=== PATIENT | female | born 1985 | race Caucasian/White ===

== ENCOUNTER 2017-07-19 12:35 | Emergency (ER) | payer OTHER, MEDICAID ==
[2017-07-19 13:28] LABS: URINE HCG POC HCG NEGATIVE (Negative)
[2017-07-19] MEDS: IV NORMAL SALINE 1000ML BAG 1,000 ML IV (13:30)
[2017-07-19 13:33] LABS: BILIRUBIN,URINE NEGATIVE (NEG); COLOR,URINE YELLOW; GLUCOSE,URINE NEGATIVE (NEG); NITRITE,URINE POSITIVE (NEG); PH,URINE 6.5; PROTEIN,URINE NEGATIVE (NEG-TRACE); UROBILINOGEN,URINE 0.2 mg/dL (0.2 mg/dL)
[2017-07-19 13:51] LABS: CLARITY,URINE HAZY
[2017-07-19 13:53] LABS: BACTERIA,URINE MANY /HPF (0-FEW); RBC,URINE 0 /HPF (0-2); SQUAMOUS EPITHELIAL CELL,UR MANY /LPF
[2017-07-19 14:04] LABS: ADD MAN DIFF? NO
[2017-07-19 14:07] LABS: BASO % 1 % (0-3); EOS # 0.1 x10^3/uL (0.0-0.7); EOS % 1 % (0-3); HEMATOCRIT 43.5 % (36.0-47.0); HEMOGLOBIN 14.5 g/dL (12.0-15.5); LYMPH # 1.2 x10^3/uL (1.0-4.8); LYMPH % 20 % (24-48); MEAN CORPUSCULAR HEMOGLOBIN 30 pg (25-35); MEAN CORPUSCULAR HGB CONC 33 g/dL (31-37); MEAN CORPUSCULAR VOLUME 91 fL (79-100); MONO # 0.4 x10^3/uL (0.0-1.1); MONO % 6 % (0-9); NEUT # 4.6 x10^3uL (1.8-7.7); NEUT % 73 % (31-73); PLATELET COUNT 242 x10^3/uL (140-400); RED BLOOD COUNT 4.79 x10^6/uL (3.50-5.40); RED CELL DISTRIBUTION WIDTH 13.5 % (11.5-14.5); WHITE BLOOD COUNT 6.3 x10^3/uL (4.0-11.0)
[2017-07-19 14:15] LABS: ANION GAP 8 (6-14); BLOOD UREA NITROGEN 11 mg/dL (7-20); BUN/CREATININE RATIO 14 (6-20); CARBON DIOXIDE 31 mmol/L (21-32); CHLORIDE 104 mmol/L (98-107); CREATININE 0.8 mg/dL (0.6-1.0); GFR 84.2; GLUCOSE 90 mg/dL (70-99); POTASSIUM 3.7 mmol/L (3.5-5.1); SODIUM 143 mmol/L (136-145)
[2017-07-19 14:19] LABS: BARBITURATES NEG (NEG); BENZODIAZEPINES NEG (NEG); CANNABINOIDS NEG (NEG); COCAINE NEG (NEG); METHADONE NEG (NEG); OPIATES NEG (NEG); PHENCYCLIDINE NEG (NEG)
[2017-07-19 14:20] LABS: AMPHETAMINE/METHAMPHETAMINE NEG (NEG); ETHANOL, URINE NEG (NEG)
[2017-07-19 14:26] LABS: NT-PRO BNP 21 pg/mL (0-124); TROPONINI < 0.017 ng/mL (0.000-0.055)
[2017-07-19 14:28] LABS: ALBUMIN 3.9 g/dL (3.4-5.0); ALBUMIN/GLOBULIN RATIO 1.2 (1.0-1.7); ALK PHOS 66 U/L (46-116); ALT (SGPT) 21 U/L (14-59); AST (SGOT) 14 U/L (15-37); MAGNESIUM 1.9 mg/dL (1.8-2.4); MYOGLOBIN 31 ng/mL (9-82); TOTAL BILIRUBIN 0.5 mg/dL (0.2-1.0); TOTAL PROTEIN 7.2 g/dL (6.4-8.2)
[2017-07-19] MEDS: CEPHALEXIN 250 MG CAPSULE. PO (15:48)
[2017-07-19] MEDS: TAMSULOSIN 0.4 MG CAP.ER.24H. PO (15:48)
[2017-07-20] MEDS ORDERED: cefTRIAXone IV Push 1 GM VIAL. IVP (16:00)
== END 2017-07-19 16:37 | disposition home or self-care (01) ==
LOC: ER 12:35
DX: N39.0 Urinary tract infection, site not specified (principal); M79.604 Pain in right leg; M79.605 Pain in left leg; R51 Headache; R07.9 Chest pain, unspecified; M79.1 Myalgia; R53.81 Other malaise; R20.2 Paresthesia of skin; K21.9 Gastro-esophageal reflux disease without esophagitis; Z98.51 Tubal ligation status; Z88.1 Allergy status to other antibiotic agents; Z88.8 Allergy status to other drugs, medicaments and biological substances; Z91.041 Radiographic dye allergy status
CPT/HCPCS: 36415; 71046; 80053; 80307; 81001; 81025; 83735; 83874; 83880; 84484; 85025; 93005; 96361; 96365; 99285-25; J0690; J7030

== ENCOUNTER 2017-12-03 19:15 | Emergency (ER) | payer SELFPAY ==
[~2017-12-03] VITALS: Ht 165.1 cm; Wt 49.9 kg
[~2017-12-03 19:15] MED LIST: ACET-704 PO; AMOX1TAB58 PO; CEPH-264 PO; METR500T PO; OMEP40CA2 PO; ONDA4TAB10 SL; OXYC-323 PO; PHEN100T82 PO; RANI150T21 PO
--- NOTE | 2017-12-03 19:38 | PHYS DOC ---
Past Medical History Past Medical History: GERD, P.U.D. Additional Past Medical Histor: Acid Reflux, Ulcers Past Surgical History: Tubal ligation, Other Additional Past Surgical Histo: ulcers Alcohol Use: None Drug Use: None Adult General Chief Complaint Chief Complaint: CHEST PAIN-CARDIAC NATURE HPI HPI Patient is a 31 year old female who presents with chief complaint of chest pain. Apparently she came home from work at 5:40 PM she had a Yon sandwich that was made yesterday by her boyfriend. She then had a 1 large nonbloody episode of diarrhea she says that this has been a common problem for her the last month where after eating she immediately has to go to have a bowel movement within a few minutes. She also at that time developed left-sided abdominal pain as well as central and left-sided pleuritic chest pain. She said that the chest pain radiated to her left chest and down towards her left abdominal area. She did have one episode of emesis as well. Currently she is having both sharp chest pain and abdominal pain and describing some numbness in her left upper leg as well. Addition she is also developing a headache as well. Review of Systems Review of Systems Constitutional: Denies fever or chills [] Eyes: Denies change in visual acuity, redness, or eye pain [] HENT: Denies nasal congestion or sore throat [] Respiratory: Denies cough or shortness of breath [] Cardiovascular: No additional information not addressed in HPI [] : Denies dysuria or hematuria [] All other systems were reviewed and found to be within normal limits, except as documented in this note. Current Medications Current Medications Current Medications Medications (Trade) Dose Ordered Sig/Cedric Start Time Stop Time Status Last Admin Dose Admin Fentanyl Citrate (Fentanyl 2ml Vial) 25 mcg 1X ONCE 12/03/17 20:00 12/03/17 20:01 DC 12/03/17 19:53 25 MCG Ketorolac Tromethamine (Toradol 15mg Vial) 15 mg 1X ONCE 12/03/17 22:30 12/03/17 22:31 DC 12/03/17 23:12 15 MG Multi-Ingredient Mouthwash/Gargle (Gi Cocktail) 20 ml 1X ONCE 12/03/17 22:30 12/03/17 22:31 DC 12/03/17 23:13 20 ML Ondansetron HCl (Zofran) 4 mg 1X ONCE 12/03/17 22:30 12/03/17 22:31 DC 12/03/17 23:10 4 MG Sodium Chloride 1,000 ml @ 1,000 mls/hr 1X ONCE 12/03/17 20:00 12/03/17 20:59 DC 12/03/17 19:54 1,000 MLS/HR Allergies Allergies Allergies Coded Allergies Type Severity Reaction Last Updated Verified Iodinated Contrast- Oral and IV Dye Allergy Severe 12/03/17 Yes levofloxacin Allergy Severe Seizure 08/19/13 Yes promethazine HCl Allergy Severe Seizure 08/19/13 Yes calcium carbonate Allergy Intermediate 12/03/17 Yes Physical Exam Physical Exam Constitutional: Well developed, well nourished, mild distress, non-toxic appearance. [] HENT: Normocephalic, atraumatic, bilateral external ears normal, oropharynx moist, no oral exudates, nose normal. [] Eyes: PERRLA, EOMI, conjunctiva normal, no discharge. [] Neck: Normal range of motion, no tenderness, supple, no stridor. [] Cardiovascular:Heart rate regular rhythm, no murmur [] Lungs & Thorax: Bilateral breath sounds clear to auscultation [] Abdomen: Bowel sounds normal, soft, mild left upper quadrant and left lower quadrant tenderness, no masses, no pulsatile masses. [] Skin: Warm, dry, no erythema, no rash. [] Extremities: No tenderness, no cyanosis, no clubbing, ROM intact, no edema. [] Neurologic: Alert and oriented X 3, normal motor function, normal sensory function, no focal deficits noted. [] Psychologic: Affect normal, judgement normal, mood normal. [] Current Patient Data Vital Signs Vital Signs Date Time Temp Pulse Resp B/P (MAP) Pulse Ox O2 Delivery O2 Flow Rate FiO2 12/03/17 19:53 20 Room Air 12/03/17 19:20 97.8 57 108/65 (79) 100 97.8 Lab Values Laboratory Tests Test 12/03/17 19:33 12/03/17 19:40 12/03/17 22:23 White Blood Count 6.7 x10^3/uL (4.0-11.0) Red Blood Count 4.34 x10^6/uL (3.50-5.40) Hemoglobin 13.4 g/dL (12.0-15.5) Hematocrit 39.2 % (36.0-47.0) Mean Corpuscular Volume 90 fL (79-100) Mean Corpuscular Hemoglobin 31 pg (25-35) Mean Corpuscular Hemoglobin Concent 34 g/dL (31-37) Red Cell Distribution Width 13.2 % (11.5-14.5) Platelet Count 253 x10^3/uL (140-400) Neutrophils (%) (Auto) 66 % (31-73) Lymphocytes (%) (Auto) 26 % (24-48) Monocytes (%) (Auto) 7 % (0-9) Eosinophils (%) (Auto) 1 % (0-3) Basophils (%) (Auto) 1 % (0-3) Neutrophils # (Auto) 4.4 x10^3uL (1.8-7.7) Lymphocytes # (Auto) 1.7 x10^3/uL (1.0-4.8) Monocytes # (Auto) 0.4 x10^3/uL (0.0-1.1) Eosinophils # (Auto) 0.1 x10^3/uL (0.0-0.7) Basophils # (Auto) 0.1 x10^3/uL (0.0-0.2) D-Dimer (Kayla) < 0.27 ug/mlFEU Sodium Level 142 mmol/L (136-145) Potassium Level 3.1 mmol/L (3.5-5.1) L Chloride Level 102 mmol/L (98-107) Carbon Dioxide Level 30 mmol/L (21-32) Anion Gap 10 (6-14) Blood Urea Nitrogen 14 mg/dL (7-20) Creatinine 0.8 mg/dL (0.6-1.0) Estimated GFR (Cockcroft-Gault) 84.2 BUN/Creatinine Ratio 18 (6-20) Glucose Level 73 mg/dL (70-99) Calcium Level 9.0 mg/dL (8.5-10.1) Total Bilirubin 0.3 mg/dL (0.2-1.0) Aspartate Amino Transferase (AST) 17 U/L (15-37) Alanine Aminotransferase (ALT) 28 U/L (14-59) Alkaline Phosphatase 77 U/L (46-116) Troponin I Quantitative < 0.017 ng/mL (0.000-0.055) Total Protein 7.0 g/dL (6.4-8.2) Albumin 3.9 g/dL (3.4-5.0) Albumin/Globulin Ratio 1.3 (1.0-1.7) Lipase 215 U/L (73-393) Urine Collection Type Void Urine Color Yellow Urine Clarity Clear Urine pH 6.5 Urine Specific [place] 1.015 Urine Protein Negative mg/dL (NEG-TRACE) Urine Glucose (UA) Negative mg/dL (NEG) Urine Ketones (Stick) Negative mg/dL (NEG) Urine Blood Negative (NEG) Urine Nitrite Positive (NEG) Urine Bilirubin Negative (NEG) Urine Urobilinogen Dipstick 0.2 mg/dL (0.2 mg/dL) Urine Leukocyte Esterase Moderate (NEG) Urine RBC Rare /HPF (0-2) Urine WBC 5-10 /HPF (0-4) Urine Squamous Epithelial Cells Many /LPF Urine Bacteria Moderate /HPF (0-FEW) Urine Test Negative (NEG) Urine Opiates Screen Neg (NEG) Urine Methadone Screen Neg (NEG) Urine Barbiturates Neg (NEG) Urine Phencyclidine Screen Neg (NEG) Urine Amphetamine/Methamphetamine Neg (NEG) Urine Benzodiazepines Screen Neg (NEG) Urine Cocaine Screen Neg (NEG) Urine Cannabinoids Screen Neg (NEG) Urine Ethyl Alcohol Neg (NEG) POC Troponin I 0.00 ng/ml (<0.08) Laboratory Tests 12/03/17 19:33 Laboratory Tests 12/03/17 19:33 EKG EKG [] Interpretation Time: EKG shows a normal sinus rhythm with a rate of 58 no ischemic changes noted interpreted by me the timing encounter. Radiology/Procedures Radiology/Procedures [] Impressions: cx5r neg Course & Med Decision Making Course & Med Decision Making Pertinent Labs and Imaging studies reviewed. (See chart for details) 31-year-old female Presenting with a constellation of symptoms that include chest pain sharp pleuritic radiating to the left chest left upper abdomen in the setting of diarrhea that happened after she ate a Yon sandwich. She has significant reproducibility on examination both chest and abdomen. Differential included a pulmonary embolism d-dimer was negative I really think dissection is extremely unlikely as well d-dimer is negative chest x-ray was negative patient is not hypertensive she is well-appearing overall. On reevaluation she said that the abdominal pain is getting better she does have some mild intermittent cramping but the main complaint now is the pleuritic central chest pain. She also was having a headache. Lab work was essentially unremarkable except for hypokalemia advised her take oral dietary potassium supplementation at home. Patient was given treatment in the emergency room to include fentanyl Toradol Zofran she did not like a GI cocktail but otherwise was feeling somewhat better at the time of discharge. Return precautions were advised and she voiced understanding of instructions. At this point time and do not think that CT imaging is warranted I did talk with her about the risks and benefits of this and I did advise her to come back to the emergency room should her symptoms not improve appropriately mixed 0.4- 48 hours. Dragon Disclaimer Dragon Disclaimer This electronic medical record was generated, in whole or in part, using a voice recognition dictation system. Departure Departure Impression: Primary Impression: Abdominal pain Additional Impression: Chest pain Disposition: HOME, SELF-CARE Condition: STABLE Referrals: UNKNOWN PCP NAME (PCP) Scripts Ondansetron Hcl (ZOFRAN) 4 Mg Tablet 4 MG PO PRN TID PRN for NAUSEA/VOMITING, #15 nausea/vomiting Prov: TOLU VALDEZ MD 12/03/17 Problem Qualifiers TOLU VALDEZ MD Dec 03, 2017 19:38
[2017-12-03 19:49] LABS: BASO # 0.1 x10^3/uL (0.0-0.2); BASO % 1 % (0-3); EOS # 0.1 x10^3/uL (0.0-0.7); EOS % 1 % (0-3); HEMATOCRIT 39.2 % (36.0-47.0); HEMOGLOBIN 13.4 g/dL (12.0-15.5); LYMPH # 1.7 x10^3/uL (1.0-4.8); LYMPH % 26 % (24-48); MEAN CORPUSCULAR HEMOGLOBIN 31 pg (25-35); MEAN CORPUSCULAR HGB CONC 34 g/dL (31-37); MEAN CORPUSCULAR VOLUME 90 fL (79-100); MONO # 0.4 x10^3/uL (0.0-1.1); MONO % 7 % (0-9); NEUT # 4.4 x10^3uL (1.8-7.7); NEUT % 66 % (31-73); PLATELET COUNT 253 x10^3/uL (140-400); RED BLOOD COUNT 4.34 x10^6/uL (3.50-5.40); RED CELL DISTRIBUTION WIDTH 13.2 % (11.5-14.5); WHITE BLOOD COUNT 6.7 x10^3/uL (4.0-11.0)
[2017-12-03 19:51] LABS: BILIRUBIN,URINE NEGATIVE (NEG); CLARITY,URINE CLEAR; COLOR,URINE YELLOW; NITRITE,URINE POSITIVE (NEG); PH,URINE 6.5; PROTEIN,URINE NEGATIVE (NEG-TRACE); UROBILINOGEN,URINE 0.2 mg/dL (0.2 mg/dL)
[2017-12-03 19:57] LABS: AMPHETAMINE/METHAMPHETAMINE NEG (NEG); BARBITURATES NEG (NEG); BENZODIAZEPINES NEG (NEG); CANNABINOIDS NEG (NEG); COCAINE NEG (NEG); METHADONE NEG (NEG); OPIATES NEG (NEG); PHENCYCLIDINE NEG (NEG)
[2017-12-03 19:58] LABS: BACTERIA,URINE MODERATE /HPF (0-FEW); RBC,URINE RARE /HPF (0-2); SQUAMOUS EPITHELIAL CELL,UR MANY /LPF
[2017-12-03 19:59] LABS: CREATININE 0.8 mg/dL (0.6-1.0); GFR 84.2; POTASSIUM 3.1 mmol/L (3.5-5.1)
[2017-12-03] MEDS ORDERED: fentaNYL PF VIAL 100 MCG/2 ML VIAL IV ONE (20:00)
[2017-12-03] MEDS ORDERED: ONDANSETRON PF 4 MG/2 ML VIAL. IV ONE ×2 (20:00→22:30)
[2017-12-03] MEDS ORDERED: IV NORMAL SALINE 1000ML BAG 1,000 ML IV ONE (20:00)
[2017-12-03 20:05] LABS: ALBUMIN 3.9 g/dL (3.4-5.0); ALBUMIN/GLOBULIN RATIO 1.3 (1.0-1.7); TOTAL BILIRUBIN 0.3 mg/dL (0.2-1.0)
--- NOTE | 2017-12-03 20:39 | EKG ---
[facility] [address] [place] [address] Test Date: 2017-12-03 Test Time: 19:24:31 Pat Name: JOSEPH JAMIL Department: Room: Gender: Female Medicine Assistant: : 1985 Requested By: TOLU VALDEZ Order Number: [id number] Reading MD: Jose Etienne MD Measurements Intervals [place] Rate: 58 P: 39 CA: 132 QRS: 79 QRSD: 72 T: 49 QT: 420 QTc: 416 Interpretive Statements SINUS RHYTHM Electronically Signed On 12-04-2017 8:19:12 CDT by Jose Etienne MD
[2017-12-03 20:42] LABS: U PREG PATIENT NEGATIVE (NEG)
--- NOTE | 2017-12-03 21:33 | RAD ---
PROCEDURE: PORTABLE CHEST 1V CLINICAL INDICATION: LEFT SIDED CHEST PAIN X1 DAY, SOA COMPARISON: 07/19/2017 FINDINGS: No pneumothorax identified. Cardiac and mediastinal contours unremarkable. No pulmonary consolidation or acute airspace disease. No acute osseous abnormalities identified. IMPRESSION: No pulmonary consolidation or acute airspace disease. Electronically signed by: Emre Wiggins DO (12/03/2017 9:31 PM) [facility]
[2017-12-03] MEDS ORDERED: LIDO:MAALOX 1:1 20 ML SINGLE DOSE. SWSW ONE (22:30)
[2017-12-03] MEDS ORDERED: KETOROLAC 15 MG/ML VIAL. IV ONE (22:30)
[2017-12-03] MEDS ORDERED: ONDA4TAB7 PO (23:28)
[2017-12-04] VITALS: BP 95/57
== END 2017-12-04 00:20 | disposition home or self-care (01) ==
LOC: ER 19:15
DX: R07.89 Other chest pain (principal); R10.32 Left lower quadrant pain; R10.12 Left upper quadrant pain; K21.9 Gastro-esophageal reflux disease without esophagitis; R10.9 Unspecified abdominal pain; R20.0 Anesthesia of skin; Z98.51 Tubal ligation status; Z88.8 Allergy status to other drugs, medicaments and biological substances; Z91.041 Radiographic dye allergy status; Z88.1 Allergy status to other antibiotic agents
CPT/HCPCS: 36415; 71045; 80053; 80307; 81001; 81025; 83690; 84484; 85025; 85379; 87086; 93005; 96374; 96375; 96376; 99285; J1885; J2405; J3010; J7030; 87186; G0479

== ENCOUNTER 2018-02-14 21:42 | Emergency (ER) | payer SELFPAY ==
[~2018-02-14] VITALS: Ht 165.1 cm; Wt 49.9 kg
[~2018-02-14 21:42] MED LIST changes: +ONDA4TAB7 PO
[2018-02-14 22:27] LABS: BASO % 1 % (0-3); EOS # 0.1 x10^3/uL (0.0-0.7); EOS % 1 % (0-3); HEMATOCRIT 39.8 % (36.0-47.0); HEMOGLOBIN 13.9 g/dL (12.0-15.5); LYMPH # 1.8 x10^3/uL (1.0-4.8); LYMPH % 30 % (24-48); MEAN CORPUSCULAR HEMOGLOBIN 31 pg (25-35); MEAN CORPUSCULAR HGB CONC 35 g/dL (31-37); MEAN CORPUSCULAR VOLUME 90 fL (79-100); MONO # 0.4 x10^3/uL (0.0-1.1); MONO % 7 % (0-9); NEUT # 3.8 x10^3uL (1.8-7.7); NEUT % 61 % (31-73); PLATELET COUNT 229 x10^3/uL (140-400); RED BLOOD COUNT 4.43 x10^6/uL (3.50-5.40); RED CELL DISTRIBUTION WIDTH 12.7 % (11.5-14.5); WHITE BLOOD COUNT 6.2 x10^3/uL (4.0-11.0)
[2018-02-14 22:28] LABS: BILIRUBIN,URINE NEGATIVE (NEG); CLARITY,URINE CLEAR; COLOR,URINE YELLOW; NITRITE,URINE POSITIVE (NEG); PH,URINE 6.5; PROTEIN,URINE NEGATIVE (NEG-TRACE)
[2018-02-14] MEDS ORDERED: HYDROcodone/APAP 5/325MG 1 TAB TABLET PO ONE (22:30)
[2018-02-14 22:35] LABS: BACTERIA,URINE MANY /HPF (0-FEW); RBC,URINE 0 /HPF (0-2); SQUAMOUS EPITHELIAL CELL,UR MANY /LPF
[2018-02-14 22:43] LABS: CALCIUM 8.6 mg/dL (8.5-10.1); CREATININE 0.8 mg/dL (0.6-1.0); GFR 83.7; POTASSIUM 3.9 mmol/L (3.5-5.1)
[2018-02-14 22:45] LABS: ALBUMIN 3.7 g/dL (3.4-5.0); ALBUMIN/GLOBULIN RATIO 1.2 (1.0-1.7); TOTAL BILIRUBIN 0.5 mg/dL (0.2-1.0); TOTAL PROTEIN 6.7 g/dL (6.4-8.2)
[2018-02-14] MEDS ORDERED: NITR100C62 PO (22:45)
--- NOTE | 2018-02-14 22:45 | PHYS DOC ---
Past Medical History Past Medical History: GERD, P.U.D. Additional Past Medical Histor: Acid Reflux, Ulcers Past Surgical History: Tubal ligation, Other Additional Past Surgical Histo: ulcers Alcohol Use: None Drug Use: None Adult General Chief Complaint Chief Complaint: PELVIC PAIN HPI HPI Patient is a 32 year old F who presents with suprapubic pain for the last 3 days. Patient reports some painful urination, but no vaginal discharge or concern for std. No fever or chills. Review of Systems Review of Systems Constitutional: Denies fever or chills [] GI: Reports suprapubic abdominal pain. Denies nausea, vomiting : Reports dysuria Musculoskeletal: Denies back pain or joint pain [] Integument: Denies rash or skin lesions [] Neurologic: Denies headache, focal weakness or sensory changes [] All other systems were reviewed and found to be within normal limits, except as documented in this note. Current Medications Current Medications Current Medications Medications (Trade) Dose Ordered Sig/Cedric Start Time Stop Time Status Last Admin Dose Admin Acetaminophen/ Hydrocodone Bitart (Lortab 5/325) 1 tab 1X ONCE 02/14/18 22:30 02/14/18 22:31 DC 02/14/18 22:29 1 TAB Nitrofurantoin Macrocrystals (Macrobid) 100 mg 1X ONCE 02/14/18 23:00 02/14/18 23:01 DC 02/14/18 23:05 100 MG Allergies Allergies Allergies Coded Allergies Type Severity Reaction Last Updated Verified Iodinated Contrast- Oral and IV Dye Allergy Severe 12/03/17 Yes levofloxacin Allergy Severe Seizure 08/19/13 Yes promethazine HCl Allergy Severe Seizure 08/19/13 Yes calcium carbonate Allergy Intermediate 12/03/17 Yes Physical Exam Physical Exam Constitutional: Well developed, well nourished, no acute distress, non-toxic appearance. [] HENT: Normocephalic, atraumatic Eyes: PERRLA, EOMI, conjunctiva normal, no discharge. [] Neck: Normal range of motion, no tenderness, supple, no stridor. [] Cardiovascular:Heart rate regular rhythm, no murmur [] Lungs & Thorax: Bilateral breath sounds clear to auscultation [] Abdomen: Bowel sounds normal, soft, suprapubic tenderness Skin: Warm, dry, no erythema, no rash. [] Extremities: No tenderness, ROM intact Neurologic: Alert and oriented X 3, normal motor function, normal sensory function, no focal deficits noted. [] Psychologic: Affect normal, judgement normal, mood normal. [] Current Patient Data Vital Signs Vital Signs Date Time Temp Pulse Resp B/P (MAP) Pulse Ox O2 Delivery O2 Flow Rate FiO2 02/14/18 23:00 113 18 125/73 (90) 99 Room Air 02/14/18 22:01 97.8 97.8 Lab Values Laboratory Tests Test 02/14/18 21:57 02/14/18 21:59 02/14/18 22:20 Urine Collection Type Unknown Urine Color Yellow Urine Clarity Clear Urine pH 6.5 Urine Specific [place] 1.025 Urine Protein Negative mg/dL (NEG-TRACE) Urine Glucose (UA) Negative mg/dL (NEG) Urine Ketones (Stick) Negative mg/dL (NEG) Urine Blood Negative (NEG) Urine Nitrite Positive (NEG) Urine Bilirubin Negative (NEG) Urine Urobilinogen Dipstick 1.0 mg/dL (0.2 mg/dL) Urine Leukocyte Esterase Small (NEG) Urine RBC 0 /HPF (0-2) Urine WBC 11-20 /HPF (0-4) Urine Squamous Epithelial Cells Many /LPF Urine Bacteria Many /HPF (0-FEW) Urine Mucus Mod /LPF POC Urine HCG, Qualitative Hcg negative (Negative) White Blood Count 6.2 x10^3/uL (4.0-11.0) Red Blood Count 4.43 x10^6/uL (3.50-5.40) Hemoglobin 13.9 g/dL (12.0-15.5) Hematocrit 39.8 % (36.0-47.0) Mean Corpuscular Volume 90 fL (79-100) Mean Corpuscular Hemoglobin 31 pg (25-35) Mean Corpuscular Hemoglobin Concent 35 g/dL (31-37) Red Cell Distribution Width 12.7 % (11.5-14.5) Platelet Count 229 x10^3/uL (140-400) Neutrophils (%) (Auto) 61 % (31-73) Lymphocytes (%) (Auto) 30 % (24-48) Monocytes (%) (Auto) 7 % (0-9) Eosinophils (%) (Auto) 1 % (0-3) Basophils (%) (Auto) 1 % (0-3) Neutrophils # (Auto) 3.8 x10^3uL (1.8-7.7) Lymphocytes # (Auto) 1.8 x10^3/uL (1.0-4.8) Monocytes # (Auto) 0.4 x10^3/uL (0.0-1.1) Eosinophils # (Auto) 0.1 x10^3/uL (0.0-0.7) Basophils # (Auto) 0.0 x10^3/uL (0.0-0.2) Sodium Level 142 mmol/L (136-145) Potassium Level 3.9 mmol/L (3.5-5.1) Chloride Level 106 mmol/L (98-107) Carbon Dioxide Level 27 mmol/L (21-32) Anion Gap 9 (6-14) Blood Urea Nitrogen 10 mg/dL (7-20) Creatinine 0.8 mg/dL (0.6-1.0) Estimated GFR (Cockcroft-Gault) 83.7 BUN/Creatinine Ratio 13 (6-20) Glucose Level 93 mg/dL (70-99) Calcium Level 8.6 mg/dL (8.5-10.1) Total Bilirubin 0.5 mg/dL (0.2-1.0) Aspartate Amino Transferase (AST) 17 U/L (15-37) Alanine Aminotransferase (ALT) 22 U/L (14-59) Alkaline Phosphatase 56 U/L (46-116) Total Protein 6.7 g/dL (6.4-8.2) Albumin 3.7 g/dL (3.4-5.0) Albumin/Globulin Ratio 1.2 (1.0-1.7) Laboratory Tests 02/14/18 22:20 Laboratory Tests 02/14/18 22:20 EKG EKG [] Radiology/Procedures Radiology/Procedures [] Course & Med Decision Making Course & Med Decision Making Pertinent Labs and Imaging studies reviewed. (See chart for details) Plan: macrobid rx, ultram rx, f/u with PCP, return precautions reviewed Dragon Disclaimer Dragon Disclaimer This electronic medical record was generated, in whole or in part, using a voice recognition dictation system. Departure Departure Impression: Primary Impression: UTI (lower urinary tract infection) Disposition: 01 HOME, SELF-CARE Condition: GOOD Referrals: ARA BRUCE MD Patient Instructions: Urinary Tract Infection Scripts Tramadol Hcl (ULTRAM) 50 Mg Tablet 1-2 TAB PO Q6HRS, #15 TAB Prov: LYLA ROBERTS APRN 02/14/18 Nitrofurantoin Monohyd/M-Cryst (MACROBID 100 MG CAPSULE) 100 Mg Capsule 1 CAP PO BID, #14 CAP Prov: LYLA ROBERTS APRN 02/14/18 Attending Signature Attending Signature I have reviewed the PA/[employer] MACHINE SETTER's note and plan of care. I was available for consultation as needed during the patient's visit in the emergency department. I agree with the clinical impression, plan, and disposition. LYLA ROBERTS APRN Feb 14, 2018 22:45 TASHI BLACK DO Feb 15, 2018 03:16
[2018-02-14] MEDS ORDERED: TRAM-48 PO (22:49)
[2018-02-14 23:00] VITALS: BP 125/73
[2018-02-14] MEDS ORDERED: NITROFURANTOIN MONOHYD/M-CRYST 100 MG CAPSULE. PO ONE (23:00)
== END 2018-02-14 23:09 | disposition home or self-care (01) ==
LOC: ER 21:42
DX: N39.0 Urinary tract infection, site not specified (principal); R10.2 Pelvic and perineal pain; K21.9 Gastro-esophageal reflux disease without esophagitis; Z98.51 Tubal ligation status; Z88.1 Allergy status to other antibiotic agents; Z88.8 Allergy status to other drugs, medicaments and biological substances; Z91.041 Radiographic dye allergy status
CPT/HCPCS: 36415; 80053; 81001; 81025; 85025; 87086; 87186; 99284